=== PATIENT | female | born 1975 | race African-American/Black ===

== ENCOUNTER 2019-05-22 08:41 | Inpatient (IN) ==
[2019-05-22] MEDS ORDERED: VANCOMYCIN INJ 1,500 MG in SODIUM CHLORIDE 0.9% 500 ML IV STA (09:15)
[2019-05-22 10:04] LABS: Albumin 2.7 G/DL (3.4-5.0); Bilirubin,Total 0.6 MG/DL (0.2-1.0); Calcium 9.3 MG/DL (8.5-10.1); Osmolality,Calculated 275.1 MOS/KG (273-304); Total Protein 8.6 G/DL (6.4-8.3)
[2019-05-22 10:07] LABS: Basophils % 0.3 % (0.0-0.8); Eosinophils # 0.1 10*3/uL (0.0-0.87); Eosinophils % 0.9 % (0.00-10.9); Immature Granulocytes % 0.6 %; Immature Granulocytes Absolute 0.06 #; Lymphocytes # 1.8 10*3/uL (1.4-4.0); Lymphocytes % 16.7 % (21.3-54.2); Mean Corpuscular Volume 77.6 FL (87-102); Mean Platelet Volume 11.1 FL (9.6-12.0); Monocytes % 6.7 % (1.7-12.7); Neutrophils % 74.8 % (38.7-73.9); Platelet Count 190 T/CUMM (130-400); Red Blood Count 5.67 MC/CUMM (3.8-5.5); Red Cell Distribution Width 15.6 % (9.3-17.3); White Blood Count 10.6 T/CUMM (4-12)
[2019-05-22 10:10] LABS: Hemoglobin 13.2 GM/DL (12.0-16.0)
[2019-05-22] MEDS ORDERED: PROMETHAZINE 25 MG TABLET PO PRN (11:25)
[2019-05-22] MEDS ORDERED: DEXTROSE 50% 25 GM/50 ML VIAL IV PRN ×2 (11:25→11:27)
[2019-05-22] MEDS ORDERED: GLUCAGON 1 MG VIAL IM PRN ×2 (11:25→11:27)
[2019-05-22] MEDS ORDERED: diphenhydrAMINE CAP 25 MG CAPSULE PO PRN (11:25)
[2019-05-22] MEDS ORDERED: ACETAMINOPHEN 325 MG TABLET PO PRN (11:25)
[2019-05-22] MEDS ORDERED: SODIUM CHLORIDE 0.9% 1,000 ML IV SCH (11:30)
[2019-05-22] MEDS: ENOXAPARIN 40 MG/0.4 ML SYRINGE SUBCUT SCH (15:23)
[2019-05-22] MEDS: INSULIN LISPRO 100 UNIT/ML SUBCUT SCH ×2 (15:23→17:32)
[2019-05-22] MEDS: LISINOPRIL/HCTZ 20-12.5 MG TABLET PO SCH (15:34)
[2019-05-22] MEDS: CEFTAROLINE 600 MG in SODIUM CHLORIDE 0.9% 100 ML IV SCH (17:31)
[2019-05-22] MEDS: SILVER SULFADIAZINE 1% CREAM 25 GM TUBE TOP SCH (17:31)
[2019-05-22] MEDS: sitaGLIPtin 25 MG TABLET PO SCH (21:01)
[2019-05-22] MEDS: INSULIN GLARGINE 100 UNIT/ML SUBCUT SCH (21:01)
[2019-05-23] MEDS: CEFTAROLINE 600 MG in SODIUM CHLORIDE 0.9% 100 ML IV SCH ×3 (00:31→20:16)
[2019-05-23] MEDS: INSULIN LISPRO 100 UNIT/ML SUBCUT SCH ×5 (00:35→21:19)
[2019-05-23 06:17] LABS: Basophils % 0.2 % (0.0-0.8); Eosinophils # 0.1 10*3/uL (0.0-0.87); Eosinophils % 0.8 % (0.00-10.9); Hematocrit 44.6 VOL% (35.7-47.0); Hemoglobin 13.6 GM/DL (12.0-16.0); Immature Granulocytes % 0.8 %; Lymphocytes # 2.5 10*3/uL (1.4-4.0); Lymphocytes % 19.5 % (21.3-54.2); Mean Corpuscular HGB Conc 30.5 GM/DL (32-36); Mean Corpuscular Volume 78.1 FL (87-102); Mean Platelet Volume 11.5 FL (9.6-12.0); Monocytes % 10.1 % (1.7-12.7); Neutrophils % 68.6 % (38.7-73.9); Platelet Count 205 T/CUMM (130-400); Red Blood Count 5.71 MC/CUMM (3.8-5.5); Red Cell Distribution Width 15.9 % (9.3-17.3); White Blood Count 12.6 T/CUMM (4-12)
[2019-05-23 06:26] LABS: Albumin 2.6 G/DL (3.4-5.0); Bilirubin,Total 0.6 MG/DL (0.2-1.0); Calcium 9.3 MG/DL (8.5-10.1); Osmolality,Calculated 274.7 MOS/KG (273-304); Risk Ratio 3.89; Total Protein 8.3 G/DL (6.4-8.3)
[2019-05-23] MEDS: ENOXAPARIN 40 MG/0.4 ML SYRINGE SUBCUT SCH (08:59)
[2019-05-23] MEDS: LISINOPRIL/HCTZ 20-12.5 MG TABLET PO SCH (09:00)
[2019-05-23] MEDS: PANTOPRAZOLE 40 MG TABLET PO SCH (09:00)
[2019-05-23] MEDS: SILVER SULFADIAZINE 1% CREAM 25 GM TUBE TOP SCH (09:00)
[2019-05-23] MEDS ORDERED: POTASSIUM CHLORIDE 20 MEQ TABLET PO ONE (09:00)
[2019-05-23 11:28] LABS: Apearance,Urine CLEAR (Clear); Bilirubin,Urine Negative (Negative); Blood, Urine Small mg/dL (Negative); Glucose,Urine (UA) Negative (Negative); Ketones,Urine 20 mg/dL (Negative); Mucus,Urine Moderate /LPF (Occasional); Nitrite,Urine Negative (Negative); Protein,Urine Negative; RBC,Urine 1 /HPF (0-4); Squamous Epithelial Cell,Urine Occasional /HPF (0-10); Urine Color Yellow (Yellow); Urine Specific Gravity 1.016 (1.001-1.035); Urine Urobilinogen < 2.0 EU/DL (0.2-1.0); WBC,Urine 2 /HPF (0-6)
[2019-05-23] MEDS: POTASSIUM CHLORIDE 20 MEQ TABLET PO SCH ×2 (12:18→15:30)
[2019-05-23 12:20] LABS: Total Protein (Chem) 8.2 G/DL (6.4-8.3)
[2019-05-23] MEDS: sitaGLIPtin 25 MG TABLET PO SCH (20:15)
[2019-05-23] MEDS: INSULIN GLARGINE 100 UNIT/ML SUBCUT SCH (21:19)
[2019-05-24 05:28] LABS: Basophils % 0.4 % (0.0-0.8); Eosinophils # 0.1 10*3/uL (0.0-0.87); Eosinophils % 1.1 % (0.00-10.9); Hematocrit 40.5 VOL% (35.7-47.0); Hemoglobin 12.4 GM/DL (12.0-16.0); Immature Granulocytes % 1.1 %; Immature Granulocytes Absolute 0.12 #; Lymphocytes # 1.9 10*3/uL (1.4-4.0); Lymphocytes % 17.1 % (21.3-54.2); Mean Corpuscular HGB Conc 30.6 GM/DL (32-36); Mean Corpuscular Volume 76.6 FL (87-102); Mean Platelet Volume 11.5 FL (9.6-12.0); Monocytes % 9.4 % (1.7-12.7); Neutrophils % 70.9 % (38.7-73.9); Platelet Count 210 T/CUMM (130-400); Red Blood Count 5.29 MC/CUMM (3.8-5.5); Red Cell Distribution Width 15.1 % (9.3-17.3); White Blood Count 10.8 T/CUMM (4-12)
[2019-05-24 05:56] LABS: Calcium 8.5 MG/DL (8.5-10.1); Osmolality,Calculated 273.8 MOS/KG (273-304)
[2019-05-24 06:57] LABS: Albumin (SPE) 3.8 G/DL (3.2-5.3); Albumin (SPE) Rel % 46.1 %; Alpha 1 (SPE) 0.4 G/DL (0.1-0.4); Alpha 1 (SPE) Rel % 4.9 %; Alpha 2 (SPE) 1.2 G/DL (0.4-1.0); Beta (SPE) 1.1 G/DL (0.5-1.1)
[2019-05-24 07:31] LABS: Alpha 2 (SPE) Rel % 14.7 %; Beta (SPE) Rel % 13.2 %; Gamma (SPE) 1.7 G/DL (0.7-1.7); Gamma (SPE) Rel % 21.1 %
[2019-05-24] MEDS: CEFTAROLINE 600 MG in SODIUM CHLORIDE 0.9% 100 ML IV SCH ×2 (08:39→20:21)
[2019-05-24] MEDS: INSULIN LISPRO 100 UNIT/ML SUBCUT SCH ×4 (08:40→21:31)
[2019-05-24] MEDS: ENOXAPARIN 40 MG/0.4 ML SYRINGE SUBCUT SCH (08:40)
[2019-05-24] MEDS: SILVER SULFADIAZINE 1% CREAM 25 GM TUBE TOP SCH (08:41)
[2019-05-24] MEDS: PANTOPRAZOLE 40 MG TABLET PO SCH (08:41)
[2019-05-24] MEDS: LISINOPRIL/HCTZ 20-12.5 MG TABLET PO SCH (08:41)
[2019-05-24] MEDS ORDERED: POTASSIUM CHLORIDE 20 MEQ TABLET PO ONE (09:00)
[2019-05-24] MEDS: POTASSIUM CHLORIDE 20 MEQ TABLET PO SCH ×3 (12:18→20:20)
[2019-05-24] MEDS: sitaGLIPtin 25 MG TABLET PO SCH (20:21)
[2019-05-24] MEDS: INSULIN GLARGINE 100 UNIT/ML SUBCUT SCH (21:32)
[2019-05-25 06:20] LABS: Osmolality,Calculated 276.7 MOS/KG (273-304)
[2019-05-25] MEDS: PANTOPRAZOLE 40 MG TABLET PO SCH (08:32)
[2019-05-25] MEDS: INSULIN LISPRO 100 UNIT/ML SUBCUT SCH ×2 (08:32→11:32)
[2019-05-25] MEDS: LISINOPRIL/HCTZ 20-12.5 MG TABLET PO SCH (08:32)
[2019-05-25] MEDS: CEFTAROLINE 600 MG in SODIUM CHLORIDE 0.9% 100 ML IV SCH (08:33)
[2019-05-25] MEDS: ENOXAPARIN 40 MG/0.4 ML SYRINGE SUBCUT SCH (08:33)
[2019-05-25] MEDS: SILVER SULFADIAZINE 1% CREAM 25 GM TUBE TOP SCH (08:33)
[2019-05-25] MEDS ORDERED: SKIN HEALING OINT (AQUAPHOR) 50 GM TUBE TOP SCH (10:30)
[2019-05-25 11:50] VITALS: BP 109/70
== END 2019-05-25 12:44 | disposition home health service (06) | DRG 420 ==
LOC: N.ED 08:41 → SUATTDRO 11:25 → N.EDINP 11:25 → N.2E 12:41
PROVIDERS: ADMIT Family Medicine; ATTEND Internal Medicine Cardiovascular Disease

== ENCOUNTER 2022-04-01 01:13 | Inpatient (IN) ==
[2022-04-01] MEDS ORDERED: ALBUTEROL/IPRATROPIUM 3 ML NEB RESP TX STA (01:37)
[2022-04-01] MEDS ORDERED: methylPREDNISolone SOD SUC 125 MG/2 ML VIAL IV STA (01:37)
[2022-04-01 02:12] LABS: ABG Base Excess 6.8 MMOL/L (-2.5-2.5); ABG HCO3 30.4 MMOL/L (20-26); ABG PCO2 59.5 MM HG (35-48); ABG PH 7.374 (7.35-7.45); ABG PO2 68.8 MM HG (80-95); ABG TCO2 29.3 MMOL/L (23-27)
[2022-04-01 02:15] LABS: Albumin 3.3 G/DL (3.4-5.0); Bilirubin,Total 1.1 MG/DL (0.20-1.00); Calcium 8.9 MG/DL (8.5-10.1); Osmolality,Calculated 266.2 MOS/KG (273-304); Potassium 4.2 MMOL/L (3.5-5.1); Total Protein 7.8 G/DL (6.4-8.2)
[2022-04-01 02:26] LABS: Basophils % 0.2 % (0.0-0.8); Eosinophils % 0.2 % (0.00-10.9); Hematocrit 53.2 VOL% (35.7-47.0); Hemoglobin 16.7 GM/DL (12.0-16.0); Immature Granulocytes % 0.4 %; Immature Granulocytes Absolute 0.04 #; Lymphocytes # 1.6 10*3/uL (1.4-4.0); Lymphocytes % 17.2 % (21.3-54.2); Mean Corpuscular HGB Conc 31.4 GM/DL (32-36); Mean Corpuscular Volume 84.3 FL (87-102); Mean Platelet Volume 9.9 FL (9.6-12.0); Monocytes # 0.7 10*3/uL (0.11-0.8); Monocytes % 8.1 % (1.7-12.7); NRBC # 0.07 10*3/uL; Neutrophils % 73.9 % (38.7-73.9); Platelet Count 175 T/CUMM (130-400); Red Blood Count 6.31 MC/CUMM (3.8-5.5); Red Cell Distribution Width 18.7 % (9.3-17.3)
[2022-04-01 02:31] LABS: INR 1.3; PT Patient Result 14.2 SECS (10.5-12.0)
[2022-04-01] MEDS ORDERED: LEVOFLOXACIN INJ 750 MG/150 ML PREMIX IV STA (02:52)
[2022-04-01] MEDS ORDERED: FUROSEMIDE 40 MG/4 ML VIAL IV STA (03:36)
[2022-04-01] MEDS ORDERED: GLUCAGON 1 MG VIAL IM PRN (04:15)
[2022-04-01] MEDS ORDERED: ACETAMINOPHEN 325 MG TABLET PO PRN (04:16)
[2022-04-01] MEDS ORDERED: guaiFENesin/DM ER 600-30 MG TABLET PO PRN (04:16)
[2022-04-01] MEDS ORDERED: ONDANSETRON 4 MG/2 ML VIAL IV PRN (04:16)
[2022-04-01] MEDS ORDERED: CALCIUM CARBONATE CHEW 500 MG TABLET PO PRN (04:16)
[2022-04-01] MEDS ORDERED: SODIUM CHLORIDE 0.9% 1,000 ML IV SCH (04:30)
[2022-04-01] MEDS ORDERED: VANCOMYCIN INJ 2,500 MG in SODIUM CHLORIDE 0.9% 500 ML IV STA (04:33)
[2022-04-01] MEDS ORDERED: DEXTROSE 10% 250 ML BAG IV PRN (04:36)
[2022-04-01 06:28] LABS: Risk Ratio 2.69; Thyroid Stimulating Hormone 2.18 uIU/ml (0.358-3.74); VLDL Cholesterol 14.6 MG/DL
[2022-04-01] MEDS: ENOXAPARIN 40 MG/0.4 ML SYRINGE SUBCUT SCH (06:28)
[2022-04-01] MEDS: ALBUTEROL/IPRATROPIUM 3 ML NEB RESP TX SCH ×3 (07:50→19:45)
[2022-04-01] MEDS: DOCUSATE SODIUM 100 MG CAPSULE PO SCH ×2 (10:16→21:34)
[2022-04-01] MEDS: METOPROLOL TARTRATE 25 MG TABLET PO SCH (10:16)
[2022-04-01] MEDS: sitaGLIPtin 25 MG TABLET PO SCH (10:16)
[2022-04-01] MEDS: ATORVASTATIN 20 MG TABLET PO SCH (10:16)
[2022-04-01] MEDS: PANTOPRAZOLE 40 MG TABLET PO SCH (10:16)
[2022-04-01] MEDS: LISINOPRIL/HCTZ 20-12.5 MG TABLET PO SCH (10:16)
[2022-04-01] MEDS: ASPIRIN EC 81 MG TABLET PO SCH (10:17)
[2022-04-01] MEDS: INSULIN REGULAR 100 UNIT/ML SUBCUT SCH ×3 (10:25→17:17)
[2022-04-01] MEDS: FUROSEMIDE 40 MG/4 ML VIAL IV SCH ×2 (11:45→15:56)
[2022-04-01] MEDS: methylPREDNISolone SOD SUC 125 MG/2 ML VIAL IV SCH ×2 (11:46→17:17)
[2022-04-01 12:13] LABS: Bacteria,Urine Occasional /HPF (Few); Mucus,Urine Occasional /LPF (Occasional); RBC,Urine 12 /HPF (0-4); Squamous Epithelial Cell,Urine Occasional /HPF (0-10)
[2022-04-01 12:15] LABS: Urine Appearance Clear (Clear); Urine Specific Gravity 1.015 (1.001-1.035); Urine pH 5.5 (4.5-8.0)
[2022-04-01 12:16] LABS: Bilirubin,Urine Small mg/dL (Negative); Blood, Urine Moderate mg/dL (Negative); Glucose,Urine (UA) Negative (Negative); Ketones,Urine Negative (Negative); Nitrite,Urine Negative (Negative); Protein,Urine 30 mg/dL (Negative); Urine Color Dark yellow (Yellow); Urine Urobilinogen > 8.0 eU/dL (<2.0)
[2022-04-01 12:21] LABS: Barbiturates Screen,Urine Negative (Negative); Benzodiazepines Screen,Urine Negative (Negative); Cannabinoid Screen,Urine Negative (Negative); Opiate Screen,Urine Positive (Negative); Phencyclidine Screen,Urine Negative (Negative)
[2022-04-01] MEDS: INSULIN GLARGINE 100 UNIT/ML SUBCUT SCH (21:34)
[2022-04-02] MEDS: ALBUTEROL/IPRATROPIUM 3 ML NEB RESP TX SCH ×4 (00:10→19:18)
[2022-04-02 05:07] LABS: Basophils % 0.1 % (0.0-0.8); Hematocrit 52.1 VOL% (35.7-47.0); Hemoglobin 16.2 GM/DL (12.0-16.0); Immature Granulocytes % 0.6 %; Immature Granulocytes Absolute 0.07 #; Lymphocytes # 0.7 10*3/uL (1.4-4.0); Mean Corpuscular HGB Conc 31.1 GM/DL (32-36); Mean Corpuscular Volume 84.4 FL (87-102); Mean Platelet Volume 10.5 FL (9.6-12.0); Monocytes # 0.6 10*3/uL (0.11-0.8); Monocytes % 4.9 % (1.7-12.7); NRBC # 0.05 10*3/uL; Neutrophils % 88.4 % (38.7-73.9); Platelet Count 171 T/CUMM (130-400); Red Blood Count 6.17 MC/CUMM (3.8-5.5); Red Cell Distribution Width 18.6 % (9.3-17.3)
[2022-04-02 05:21] LABS: Calcium 8.4 MG/DL (8.5-10.1); Osmolality,Calculated 271.1 MOS/KG (273-304); Potassium 4.3 MMOL/L (3.5-5.1)
[2022-04-02] MEDS: INSULIN REGULAR 100 UNIT/ML SUBCUT SCH ×5 (05:48→21:28)
[2022-04-02] MEDS: methylPREDNISolone SOD SUC 125 MG/2 ML VIAL IV SCH ×3 (05:49→17:42)
[2022-04-02] MEDS: ENOXAPARIN 40 MG/0.4 ML SYRINGE SUBCUT SCH (05:59)
[2022-04-02] MEDS ORDERED: MAGNESIUM SULF RIDER 2 GM/50 ML PREMIX IV ONE (08:29)
[2022-04-02] MEDS ORDERED: LEVOFLOXACIN INJ 750 MG/150 ML PREMIX IV SCH (09:00)
[2022-04-02] MEDS: FUROSEMIDE 40 MG/4 ML VIAL IV SCH ×2 (09:32→17:41)
[2022-04-02] MEDS: DOCUSATE SODIUM 100 MG CAPSULE PO SCH ×2 (09:33→21:28)
[2022-04-02] MEDS: METOPROLOL TARTRATE 25 MG TABLET PO SCH (09:33)
[2022-04-02] MEDS: LISINOPRIL/HCTZ 20-12.5 MG TABLET PO SCH (09:33)
[2022-04-02] MEDS: sitaGLIPtin 25 MG TABLET PO SCH (09:33)
[2022-04-02] MEDS: ASPIRIN EC 81 MG TABLET PO SCH (09:34)
[2022-04-02] MEDS: ATORVASTATIN 20 MG TABLET PO SCH (09:34)
[2022-04-02] MEDS: PANTOPRAZOLE 40 MG TABLET PO SCH (09:34)
[2022-04-02] MEDS: amLODIPine 5 MG TABLET PO SCH (11:54)
[2022-04-02] MEDS: INSULIN GLARGINE 100 UNIT/ML SUBCUT SCH (21:28)
[2022-04-03] MEDS: ALBUTEROL/IPRATROPIUM 3 ML NEB RESP TX SCH ×4 (00:38→19:18)
[2022-04-03] MEDS: methylPREDNISolone SOD SUC 125 MG/2 ML VIAL IV SCH ×3 (02:03→17:59)
[2022-04-03] MEDS: ENOXAPARIN 40 MG/0.4 ML SYRINGE SUBCUT SCH (04:49)
[2022-04-03 05:54] LABS: Basophils % 0.1 % (0.0-0.8); Hematocrit 49.8 VOL% (35.7-47.0); Hemoglobin 15.6 GM/DL (12.0-16.0); Immature Granulocytes % 0.5 %; Immature Granulocytes Absolute 0.07 #; Lymphocytes # 0.6 10*3/uL (1.4-4.0); Lymphocytes % 4.1 % (21.3-54.2); Mean Corpuscular HGB Conc 31.3 GM/DL (32-36); Mean Corpuscular Volume 85.9 FL (87-102); Mean Platelet Volume 10.4 FL (9.6-12.0); Monocytes # 0.3 10*3/uL (0.11-0.8); Monocytes % 2.3 % (1.7-12.7); NRBC # 0.03 10*3/uL; Platelet Count 157 T/CUMM (130-400); Red Cell Distribution Width 17.9 % (9.3-17.3); White Blood Count 13.6 T/CUMM (4-12)
[2022-04-03 06:08] LABS: Calcium 9.3 MG/DL (8.5-10.1); Osmolality,Calculated 271.1 MOS/KG (273-304); Potassium 4.1 MMOL/L (3.5-5.1)
[2022-04-03] MEDS: sitaGLIPtin 25 MG TABLET PO SCH (08:49)
[2022-04-03] MEDS: DOCUSATE SODIUM 100 MG CAPSULE PO SCH ×2 (08:49→22:30)
[2022-04-03] MEDS: METOPROLOL SUCCINATE XL 25 MG TABLET PO SCH (08:49)
[2022-04-03] MEDS: LISINOPRIL/HCTZ 10-12.5 MG TABLET PO SCH (08:49)
[2022-04-03] MEDS: ATORVASTATIN 20 MG TABLET PO SCH (08:49)
[2022-04-03] MEDS: amLODIPine 5 MG TABLET PO SCH (08:50)
[2022-04-03] MEDS: PANTOPRAZOLE 40 MG TABLET PO SCH (08:50)
[2022-04-03] MEDS: ASPIRIN EC 81 MG TABLET PO SCH (08:50)
[2022-04-03] MEDS: FUROSEMIDE 40 MG/4 ML VIAL IV SCH ×2 (08:50→16:36)
[2022-04-03] MEDS: INSULIN REGULAR 100 UNIT/ML SUBCUT SCH ×4 (08:51→22:31)
[2022-04-03] MEDS ORDERED: LEVOFLOXACIN 750 MG TABLET PO SCH (09:00)
[2022-04-03] MEDS: PIPERACILLIN/TAZOBACTAM 3,375 MG in SODIUM CHLORIDE 0.9% 100 ML IV SCH ×2 (15:00→22:30)
[2022-04-03] MEDS: INSULIN GLARGINE 100 UNIT/ML SUBCUT SCH (22:31)
[2022-04-04] MEDS: ALBUTEROL/IPRATROPIUM 3 ML NEB RESP TX SCH ×4 (00:07→19:03)
[2022-04-04] MEDS: methylPREDNISolone SOD SUC 125 MG/2 ML VIAL IV SCH ×3 (02:26→17:53)
[2022-04-04 05:23] LABS: Basophils % 0.1 % (0.0-0.8); Hematocrit 51.5 VOL% (35.7-47.0); Hemoglobin 15.9 GM/DL (12.0-16.0); Immature Granulocytes % 0.3 %; Immature Granulocytes Absolute 0.04 #; Lymphocytes # 0.6 10*3/uL (1.4-4.0); Lymphocytes % 4.8 % (21.3-54.2); Mean Corpuscular HGB Conc 30.9 GM/DL (32-36); Mean Corpuscular Volume 84.3 FL (87-102); Mean Platelet Volume 10.7 FL (9.6-12.0); Monocytes # 0.5 10*3/uL (0.11-0.8); Monocytes % 3.8 % (1.7-12.7); Platelet Count 162 T/CUMM (130-400); Red Blood Count 6.11 MC/CUMM (3.8-5.5); Red Cell Distribution Width 18.3 % (9.3-17.3); White Blood Count 11.8 T/CUMM (4-12)
[2022-04-04 05:38] LABS: Osmolality,Calculated 274.8 MOS/KG (273-304); Potassium 3.9 MMOL/L (3.5-5.1)
[2022-04-04 05:44] LABS: Lymphocytes 2 % (20-55); Platelet Estimate Adequate; Total Cells Counted 100
[2022-04-04] MEDS: ENOXAPARIN 40 MG/0.4 ML SYRINGE SUBCUT SCH (06:24)
[2022-04-04] MEDS: PIPERACILLIN/TAZOBACTAM 3,375 MG in SODIUM CHLORIDE 0.9% 100 ML IV SCH ×3 (06:24→22:31)
[2022-04-04] MEDS: LISINOPRIL/HCTZ 10-12.5 MG TABLET PO SCH (09:10)
[2022-04-04] MEDS: sitaGLIPtin 25 MG TABLET PO SCH (09:10)
[2022-04-04] MEDS: ASPIRIN EC 81 MG TABLET PO SCH (09:11)
[2022-04-04] MEDS: ATORVASTATIN 20 MG TABLET PO SCH (09:11)
[2022-04-04] MEDS: DOCUSATE SODIUM 100 MG CAPSULE PO SCH ×2 (09:11→21:29)
[2022-04-04] MEDS: PANTOPRAZOLE 40 MG TABLET PO SCH (09:11)
[2022-04-04] MEDS: amLODIPine 5 MG TABLET PO SCH (09:11)
[2022-04-04] MEDS: METOPROLOL SUCCINATE XL 25 MG TABLET PO SCH (09:11)
[2022-04-04] MEDS: FUROSEMIDE 40 MG/4 ML VIAL IV SCH ×2 (09:12→15:31)
[2022-04-04] MEDS: INSULIN REGULAR 100 UNIT/ML SUBCUT SCH ×4 (09:13→21:29)
[2022-04-04] MEDS: INSULIN GLARGINE 100 UNIT/ML SUBCUT SCH (22:30)
[2022-04-05] MEDS: ALBUTEROL/IPRATROPIUM 3 ML NEB RESP TX SCH ×5 (00:07→19:51)
[2022-04-05] MEDS: methylPREDNISolone SOD SUC 125 MG/2 ML VIAL IV SCH ×3 (03:01→17:43)
[2022-04-05 04:46] LABS: Basophils % 0.1 % (0.0-0.8); Hematocrit 50.6 VOL% (35.7-47.0); Hemoglobin 15.6 GM/DL (12.0-16.0); Immature Granulocytes % 0.5 %; Immature Granulocytes Absolute 0.06 #; Lymphocytes # 0.7 10*3/uL (1.4-4.0); Lymphocytes % 6.3 % (21.3-54.2); Mean Corpuscular HGB Conc 30.8 GM/DL (32-36); Mean Corpuscular Volume 85.8 FL (87-102); Mean Platelet Volume 10.2 FL (9.6-12.0); Monocytes # 0.5 10*3/uL (0.11-0.8); Monocytes % 4.4 % (1.7-12.7); Neutrophils % 88.7 % (38.7-73.9); Platelet Count 141 T/CUMM (130-400); White Blood Count 11.4 T/CUMM (4-12)
[2022-04-05 05:17] LABS: Calcium 8.2 MG/DL (8.5-10.1); Potassium 3.6 MMOL/L (3.5-5.1)
[2022-04-05] MEDS: PIPERACILLIN/TAZOBACTAM 3,375 MG in SODIUM CHLORIDE 0.9% 100 ML IV SCH ×3 (06:44→22:02)
[2022-04-05] MEDS ORDERED: POTASSIUM CHLORIDE 20 MEQ TABLET PO ONE (08:30)
[2022-04-05] MEDS: INSULIN REGULAR 100 UNIT/ML SUBCUT SCH ×4 (08:40→22:02)
[2022-04-05] MEDS: DOCUSATE SODIUM 100 MG CAPSULE PO SCH ×2 (09:11→22:01)
[2022-04-05] MEDS: ATORVASTATIN 20 MG TABLET PO SCH (09:11)
[2022-04-05] MEDS: PANTOPRAZOLE 40 MG TABLET PO SCH (09:11)
[2022-04-05] MEDS: METOPROLOL SUCCINATE XL 25 MG TABLET PO SCH (09:11)
[2022-04-05] MEDS: amLODIPine 5 MG TABLET PO SCH (09:11)
[2022-04-05] MEDS: lisinopriL 10 MG TABLET PO SCH (09:11)
[2022-04-05] MEDS: ASPIRIN EC 81 MG TABLET PO SCH (09:11)
[2022-04-05] MEDS: sitaGLIPtin 25 MG TABLET PO SCH (09:11)
[2022-04-05] MEDS: ENOXAPARIN 40 MG/0.4 ML SYRINGE SUBCUT SCH (09:12)
[2022-04-05] MEDS: FUROSEMIDE 40 MG/4 ML VIAL IV SCH (10:35)
[2022-04-05] MEDS: SPIRONOLACTONE 25 MG TABLET PO SCH (11:48)
[2022-04-05] MEDS: INSULIN GLARGINE 100 UNIT/ML SUBCUT SCH (22:01)
[2022-04-06] MEDS: ALBUTEROL/IPRATROPIUM 3 ML NEB RESP TX SCH ×4 (02:35→19:35)
[2022-04-06] MEDS: methylPREDNISolone SOD SUC 125 MG/2 ML VIAL IV SCH ×2 (02:55→10:49)
[2022-04-06] MEDS: PIPERACILLIN/TAZOBACTAM 3,375 MG in SODIUM CHLORIDE 0.9% 100 ML IV SCH ×3 (05:58→21:28)
[2022-04-06] MEDS ORDERED: FUROSEMIDE 40 MG/4 ML VIAL IV SCH (08:00)
[2022-04-06] MEDS: sitaGLIPtin 25 MG TABLET PO SCH (08:40)
[2022-04-06] MEDS: METOPROLOL SUCCINATE XL 25 MG TABLET PO SCH (08:41)
[2022-04-06] MEDS: amLODIPine 5 MG TABLET PO SCH (08:41)
[2022-04-06] MEDS: ASPIRIN EC 81 MG TABLET PO SCH (08:41)
[2022-04-06] MEDS: ATORVASTATIN 20 MG TABLET PO SCH (08:41)
[2022-04-06] MEDS: ENOXAPARIN 40 MG/0.4 ML SYRINGE SUBCUT SCH (08:41)
[2022-04-06] MEDS: DOCUSATE SODIUM 100 MG CAPSULE PO SCH ×2 (08:41→21:28)
[2022-04-06] MEDS: SPIRONOLACTONE 25 MG TABLET PO SCH (08:41)
[2022-04-06] MEDS: lisinopriL 10 MG TABLET PO SCH (08:41)
[2022-04-06] MEDS: PANTOPRAZOLE 40 MG TABLET PO SCH (08:41)
[2022-04-06] MEDS: INSULIN REGULAR 100 UNIT/ML SUBCUT SCH ×4 (08:42→21:28)
[2022-04-06] MEDS: FUROSEMIDE 40 MG TABLET PO SCH (16:45)
[2022-04-06] MEDS: predniSONE 20 MG TABLET PO SCH (21:28)
[2022-04-06] MEDS: INSULIN GLARGINE 100 UNIT/ML SUBCUT SCH (21:29)
[2022-04-07] MEDS: ALBUTEROL/IPRATROPIUM 3 ML NEB RESP TX SCH ×4 (00:27→20:10)
[2022-04-07 05:21] LABS: Basophils % 0.1 % (0.0-0.8); Immature Granulocytes % 0.4 %; Immature Granulocytes Absolute 0.04 #; Lymphocytes # 0.9 10*3/uL (1.4-4.0); Lymphocytes % 9.2 % (21.3-54.2); Mean Corpuscular HGB Conc 30.9 GM/DL (32-36); Mean Corpuscular Volume 85.3 FL (87-102); Mean Platelet Volume 10.9 FL (9.6-12.0); Monocytes # 0.6 10*3/uL (0.11-0.8); Neutrophils % 84.3 % (38.7-73.9); Platelet Count 154 T/CUMM (130-400); Red Blood Count 6.45 MC/CUMM (3.8-5.5); Red Cell Distribution Width 18.3 % (9.3-17.3); White Blood Count 9.8 T/CUMM (4-12)
[2022-04-07] MEDS: PIPERACILLIN/TAZOBACTAM 3,375 MG in SODIUM CHLORIDE 0.9% 100 ML IV SCH ×2 (05:28→13:40)
[2022-04-07 05:41] LABS: Calcium 8.9 MG/DL (8.5-10.1); Osmolality,Calculated 278.7 MOS/KG (273-304); Potassium 3.8 MMOL/L (3.5-5.1)
[2022-04-07] MEDS: amLODIPine 5 MG TABLET PO SCH (09:10)
[2022-04-07] MEDS: FUROSEMIDE 40 MG TABLET PO SCH ×2 (09:10→15:33)
[2022-04-07] MEDS: ATORVASTATIN 20 MG TABLET PO SCH (09:10)
[2022-04-07] MEDS: PANTOPRAZOLE 40 MG TABLET PO SCH (09:10)
[2022-04-07] MEDS: sitaGLIPtin 25 MG TABLET PO SCH (09:10)
[2022-04-07] MEDS: predniSONE 20 MG TABLET PO SCH ×2 (09:10→22:23)
[2022-04-07] MEDS: lisinopriL 10 MG TABLET PO SCH (09:10)
[2022-04-07] MEDS: DOCUSATE SODIUM 100 MG CAPSULE PO SCH ×2 (09:10→22:23)
[2022-04-07] MEDS: METOPROLOL SUCCINATE XL 25 MG TABLET PO SCH (09:10)
[2022-04-07] MEDS: SPIRONOLACTONE 25 MG TABLET PO SCH (09:10)
[2022-04-07] MEDS: ASPIRIN EC 81 MG TABLET PO SCH (09:10)
[2022-04-07] MEDS: ENOXAPARIN 40 MG/0.4 ML SYRINGE SUBCUT SCH (09:11)
[2022-04-07] MEDS: INSULIN REGULAR 100 UNIT/ML SUBCUT SCH ×4 (09:11→22:24)
[2022-04-07] MEDS: AMOXICILLIN/CLAV 875 MG TABLET PO SCH (22:23)
[2022-04-07] MEDS: INSULIN GLARGINE 100 UNIT/ML SUBCUT SCH (22:24)
[2022-04-08] MEDS: ALBUTEROL/IPRATROPIUM 3 ML NEB RESP TX SCH ×2 (00:35)
[2022-04-08] MEDS: sitaGLIPtin 25 MG TABLET PO SCH (09:19)
[2022-04-08] MEDS: INSULIN REGULAR 100 UNIT/ML SUBCUT SCH ×2 (09:19→12:40)
[2022-04-08] MEDS: AMOXICILLIN/CLAV 875 MG TABLET PO SCH (09:19)
[2022-04-08] MEDS: METOPROLOL SUCCINATE XL 25 MG TABLET PO SCH (09:19)
[2022-04-08] MEDS: ENOXAPARIN 40 MG/0.4 ML SYRINGE SUBCUT SCH (09:19)
[2022-04-08] MEDS: DOCUSATE SODIUM 100 MG CAPSULE PO SCH (09:20)
[2022-04-08] MEDS: ASPIRIN EC 81 MG TABLET PO SCH (09:20)
[2022-04-08] MEDS: ATORVASTATIN 20 MG TABLET PO SCH (09:20)
[2022-04-08] MEDS: predniSONE 20 MG TABLET PO SCH (09:20)
[2022-04-08] MEDS: lisinopriL 10 MG TABLET PO SCH (09:20)
[2022-04-08] MEDS: amLODIPine 5 MG TABLET PO SCH (09:20)
[2022-04-08] MEDS: FUROSEMIDE 40 MG TABLET PO SCH (09:20)
[2022-04-08] MEDS: SPIRONOLACTONE 25 MG TABLET PO SCH (09:21)
[2022-04-08] MEDS: PANTOPRAZOLE 40 MG TABLET PO SCH (09:21)
[2022-04-08 11:37] VITALS: BP 137/81
== END 2022-04-08 13:50 | disposition home or self-care (01) | DRG 133 ==
LOC: EDBD → EDUNIT# → N.ED 01:13 → N.EDINP 04:03 → SUATTDRO 04:03 → N.TELEN 04:26
PROVIDERS: ADMIT Internal Medicine; ATTEND Emergency Medicine

== ENCOUNTER 2022-09-03 09:55 | Inpatient (IN) ==
[2022-09-03] MEDS ORDERED: FUROSEMIDE 40 MG/4 ML VIAL IV STA ×2 (10:10→11:08)
[2022-09-03] MEDS ORDERED: ASPIRIN 325 MG TABLET PO STA (10:10)
[2022-09-03] MEDS ORDERED: ALBUTEROL/IPRATROPIUM 3 ML NEB RESP TX STA (10:10)
[2022-09-03 10:19] LABS: Basophils % 0.4 % (0.0-0.8); Hematocrit 48.8 VOL% (35.7-47.0); Hemoglobin 15.4 GM/DL (12.0-16.0); Immature Granulocytes % 0.1 %; Immature Granulocytes Absolute 0.01 #; Lymphocytes # 1.6 10*3/uL (1.4-4.0); Lymphocytes % 19.3 % (21.3-54.2); Mean Corpuscular HGB Conc 31.6 GM/DL (32-36); Mean Corpuscular Volume 86.8 FL (87-102); Mean Platelet Volume 10.1 FL (9.6-12.0); Monocytes # 0.8 10*3/uL (0.11-0.8); NRBC # 0.02 10*3/uL; Neutrophils % 70.2 % (38.7-73.9); Platelet Count 214 T/CUMM (130-400); Red Blood Count 5.62 MC/CUMM (3.8-5.5); Red Cell Distribution Width 19.3 % (9.3-17.3); White Blood Count 8.4 T/CUMM (4-12)
[2022-09-03 10:36] LABS: INR 1.3; PT Patient Result 14.5 SECS (10.1-12.1)
[2022-09-03 10:37] LABS: Albumin 3.3 G/DL (3.4-5.0); Bilirubin,Total 1.4 MG/DL (0.20-1.00); Calcium 9.2 MG/DL (8.5-10.1); Osmolality,Calculated 271.1 MOS/KG (273-304); Potassium 4.5 MMOL/L (3.5-5.1); Total Protein 7.9 G/DL (6.4-8.2)
[2022-09-03 10:59] LABS: Arterial Base Excess iSTAT 5 MMOL/L (-2.5-2.5); Arterial Bicarbonate iSTAT 30.5 MMOL/L (20-26); Arterial O2 Saturation iSTAT 79 % (95-100); Arterial PCO2 iSTAT 48 MM HG (35-48); Arterial PO2 iSTAT 43 MM HG (80-95); Arterial Total CO2 iSTAT 32 MMO/L (23-27); Arterial pH iSTAT 7.415 (7.35-7.45)
[2022-09-03] MEDS ORDERED: FUROSEMIDE 20 MG/2 ML VIAL IV STA (11:06)
[2022-09-03] MEDS ORDERED: cefTRIAXone 1,000 MG in SODIUM CHLORIDE 0.9% 100 ML IV STA (12:18)
[2022-09-03] MEDS ORDERED: AZITHROMYCIN INJ 500 MG in SODIUM CHLORIDE 0.9% 250 ML IV STA (12:18)
[2022-09-03] MEDS ORDERED: guaiFENesin/DM ER 600-30 MG TABLET PO PRN (12:59)
[2022-09-03] MEDS ORDERED: ZALEPLON 5 MG CAPSULE PO PRN (12:59)
[2022-09-03] MEDS ORDERED: GLUCAGON 1 MG VIAL IM PRN (12:59)
[2022-09-03] MEDS ORDERED: ACETAMINOPHEN 325 MG TABLET PO PRN (12:59)
[2022-09-03] MEDS ORDERED: ONDANSETRON 4 MG/2 ML VIAL IV PRN (12:59)
[2022-09-03] MEDS ORDERED: DEXTROSE 10% 250 ML BAG IV PRN (13:10)
[2022-09-03] MEDS ORDERED: INFLUENZA VIRUS VACCINE 0.5 ML SYRINGE IM ONE (14:34)
[2022-09-03] MEDS: FUROSEMIDE 40 MG/4 ML VIAL IV SCH (15:09)
[2022-09-03] MEDS: NICOTINE 21 MG/24 HR PATCH TRANSDERM SCH (15:10)
[2022-09-03] MEDS: ENOXAPARIN 40 MG/0.4 ML SYRINGE SUBCUT SCH (15:11)
[2022-09-03] MEDS: INSULIN REGULAR 100 UNIT/ML SUBCUT SCH ×2 (15:47→21:15)
[2022-09-03] MEDS: INSULIN GLARGINE 100 UNIT/ML SUBCUT SCH (21:15)
[2022-09-04 05:29] LABS: Basophils # 0.1 10*3/uL (0.0-0.2); Basophils % 0.6 % (0.0-0.8); Eosinophils % 0.2 % (0.00-10.9); Hematocrit 43.6 VOL% (35.7-47.0); Hemoglobin 14.5 GM/DL (12.0-16.0); Immature Granulocytes % 0.2 %; Immature Granulocytes Absolute 0.02 #; Lymphocytes # 1.8 10*3/uL (1.4-4.0); Lymphocytes % 21.7 % (21.3-54.2); Mean Corpuscular HGB Conc 33.3 GM/DL (32-36); Mean Corpuscular Volume 87.7 FL (87-102); Mean Platelet Volume 10.1 FL (9.6-12.0); Monocytes % 11.4 % (1.7-12.7); Neutrophils % 65.9 % (38.7-73.9); Platelet Count 215 T/CUMM (130-400); Red Blood Count 4.97 MC/CUMM (3.8-5.5); Red Cell Distribution Width 18.2 % (9.3-17.3); White Blood Count 8.3 T/CUMM (4-12)
[2022-09-04 06:00] LABS: Anisocytosis 1+; Macrocytosis Slight; Platelet Estimate Normal
[2022-09-04 06:27] LABS: Calcium 8.9 MG/DL (8.5-10.1); Osmolality,Calculated 272.8 MOS/KG (273-304); Potassium 3.8 MMOL/L (3.5-5.1); Thyroid Stimulating Hormone 0.672 uIU/ml (0.358-3.74)
[2022-09-04] MEDS: INSULIN REGULAR 100 UNIT/ML SUBCUT SCH ×4 (07:44→21:27)
[2022-09-04] MEDS: lisinopriL 20 MG TABLET PO SCH (08:42)
[2022-09-04] MEDS: hydroCHLOROthiazide 12.5 MG CAPSULE PO SCH (08:42)
[2022-09-04] MEDS: cefTRIAXone 2,000 MG in SODIUM CHLORIDE 0.9% 100 ML IV SCH (08:43)
[2022-09-04] MEDS: FUROSEMIDE 40 MG/4 ML VIAL IV SCH ×2 (08:43→16:45)
[2022-09-04] MEDS: DOCUSATE SODIUM 100 MG CAPSULE PO PRN (08:44)
[2022-09-04] MEDS: ATORVASTATIN 20 MG TABLET PO SCH (08:45)
[2022-09-04] MEDS: NICOTINE 21 MG/24 HR PATCH TRANSDERM SCH (08:50)
[2022-09-04] MEDS ORDERED: MAGNESIUM SULF RIDER 2 GM/50 ML PREMIX IV ONE (09:02)
[2022-09-04] MEDS: AZITHROMYCIN INJ 500 MG in SODIUM CHLORIDE 0.9% 250 ML IV SCH (09:30)
[2022-09-04] MEDS: ENOXAPARIN 40 MG/0.4 ML SYRINGE SUBCUT SCH (14:48)
[2022-09-04] MEDS: INSULIN GLARGINE 100 UNIT/ML SUBCUT SCH (20:57)
[2022-09-05 06:16] LABS: Basophils % 0.4 % (0.0-0.8); Eosinophils % 0.4 % (0.00-10.9); Hematocrit 42.8 VOL% (35.7-47.0); Hemoglobin 13.6 GM/DL (12.0-16.0); Immature Granulocytes % 0.3 %; Immature Granulocytes Absolute 0.02 #; Lymphocytes # 1.5 10*3/uL (1.4-4.0); Lymphocytes % 20.6 % (21.3-54.2); Mean Corpuscular HGB Conc 31.8 GM/DL (32-36); Mean Corpuscular Volume 89.4 FL (87-102); Mean Platelet Volume 10.7 FL (9.6-12.0); Monocytes # 0.8 10*3/uL (0.11-0.8); Monocytes % 10.3 % (1.7-12.7); Platelet Count 194 T/CUMM (130-400); Red Blood Count 4.79 MC/CUMM (3.8-5.5); Red Cell Distribution Width 17.8 % (9.3-17.3); White Blood Count 7.4 T/CUMM (4-12)
[2022-09-05 06:50] LABS: Calcium 8.5 MG/DL (8.5-10.1); Osmolality,Calculated 271.8 MOS/KG (273-304); Potassium 3.4 MMOL/L (3.5-5.1)
[2022-09-05] MEDS: INSULIN REGULAR 100 UNIT/ML SUBCUT SCH ×4 (07:52→20:57)
[2022-09-05] MEDS ORDERED: POTASSIUM CHLORIDE 20 MEQ TABLET PO ONE ×2 (08:16→08:39)
[2022-09-05] MEDS: NICOTINE 21 MG/24 HR PATCH TRANSDERM SCH (09:50)
[2022-09-05] MEDS: ATORVASTATIN 20 MG TABLET PO SCH (09:50)
[2022-09-05] MEDS: lisinopriL 20 MG TABLET PO SCH (09:50)
[2022-09-05] MEDS: FUROSEMIDE 40 MG/4 ML VIAL IV SCH ×2 (09:50→18:06)
[2022-09-05] MEDS: hydroCHLOROthiazide 12.5 MG CAPSULE PO SCH (09:50)
[2022-09-05] MEDS: cefTRIAXone 2,000 MG in SODIUM CHLORIDE 0.9% 100 ML IV SCH (09:51)
[2022-09-05] MEDS: ASPIRIN EC 81 MG TABLET PO SCH (09:58)
[2022-09-05] MEDS: AZITHROMYCIN INJ 500 MG in SODIUM CHLORIDE 0.9% 250 ML IV SCH (11:17)
[2022-09-05] MEDS ORDERED: AZITHROMYCIN INJ 500 MG in SODIUM CHLORIDE 0.9% 250 ML IV SCH (12:00)
[2022-09-05] MEDS: ENOXAPARIN 40 MG/0.4 ML SYRINGE SUBCUT SCH (13:52)
[2022-09-05] MEDS: INSULIN GLARGINE 100 UNIT/ML SUBCUT SCH (20:59)
[2022-09-06 06:03] LABS: Basophils % 0.5 % (0.0-0.8); Eosinophils # 0.1 10*3/uL (0.0-0.87); Eosinophils % 1.1 % (0.00-10.9); Hematocrit 45.2 VOL% (35.7-47.0); Immature Granulocytes % 0.3 %; Immature Granulocytes Absolute 0.02 #; Lymphocytes # 1.4 10*3/uL (1.4-4.0); Lymphocytes % 22.6 % (21.3-54.2); Mean Corpuscular Volume 89.7 FL (87-102); Mean Platelet Volume 10.2 FL (9.6-12.0); Monocytes # 0.6 10*3/uL (0.11-0.8); Neutrophils % 66.5 % (38.7-73.9); Platelet Count 206 T/CUMM (130-400); Red Blood Count 5.04 MC/CUMM (3.8-5.5); White Blood Count 6.2 T/CUMM (4-12)
[2022-09-06 06:13] LABS: Calcium 8.8 MG/DL (8.5-10.1); Osmolality,Calculated 273.8 MOS/KG (273-304); Potassium 3.6 MMOL/L (3.5-5.1)
[2022-09-06] MEDS ORDERED: MAGNESIUM SULF RIDER 2 GM/50 ML PREMIX IV ONE (09:00)
[2022-09-06] MEDS: cefTRIAXone 2,000 MG in SODIUM CHLORIDE 0.9% 100 ML IV SCH (10:13)
[2022-09-06] MEDS: NICOTINE 21 MG/24 HR PATCH TRANSDERM SCH (10:14)
[2022-09-06] MEDS: FUROSEMIDE 40 MG/4 ML VIAL IV SCH ×2 (10:14→16:45)
[2022-09-06] MEDS: AZITHROMYCIN 250 MG TABLET PO SCH (10:15)
[2022-09-06] MEDS: hydroCHLOROthiazide 12.5 MG CAPSULE PO SCH (10:15)
[2022-09-06] MEDS: lisinopriL 20 MG TABLET PO SCH (10:15)
[2022-09-06] MEDS: ASPIRIN EC 81 MG TABLET PO SCH (10:15)
[2022-09-06] MEDS: ATORVASTATIN 20 MG TABLET PO SCH (10:15)
[2022-09-06] MEDS: DOCUSATE SODIUM 100 MG CAPSULE PO PRN (10:15)
[2022-09-06] MEDS: INSULIN REGULAR 100 UNIT/ML SUBCUT SCH ×4 (10:25→20:37)
[2022-09-06] MEDS: ENOXAPARIN 40 MG/0.4 ML SYRINGE SUBCUT SCH (14:13)
[2022-09-06] MEDS: INSULIN GLARGINE 100 UNIT/ML SUBCUT SCH (20:21)
[2022-09-07 05:04] LABS: Basophils % 0.7 % (0.0-0.8); Eosinophils # 0.1 10*3/uL (0.0-0.87); Eosinophils % 1.6 % (0.00-10.9); Hematocrit 43.5 VOL% (35.7-47.0); Hemoglobin 13.5 GM/DL (12.0-16.0); Immature Granulocytes % 0.2 %; Immature Granulocytes Absolute 0.01 #; Lymphocytes # 1.5 10*3/uL (1.4-4.0); Lymphocytes % 26.5 % (21.3-54.2); Mean Corpuscular Volume 87.7 FL (87-102); Mean Platelet Volume 10.1 FL (9.6-12.0); Monocytes # 0.6 10*3/uL (0.11-0.8); Monocytes % 10.1 % (1.7-12.7); Neutrophils % 60.9 % (38.7-73.9); Platelet Count 215 T/CUMM (130-400); Red Blood Count 4.96 MC/CUMM (3.8-5.5); Red Cell Distribution Width 17.2 % (9.3-17.3); White Blood Count 5.7 T/CUMM (4-12)
[2022-09-07 05:25] LABS: Calcium 8.7 MG/DL (8.5-10.1); Osmolality,Calculated 271.8 MOS/KG (273-304); Potassium 3.6 MMOL/L (3.5-5.1)
[2022-09-07] MEDS: INSULIN REGULAR 100 UNIT/ML SUBCUT SCH ×4 (07:30→21:50)
[2022-09-07] MEDS: FUROSEMIDE 40 MG/4 ML VIAL IV SCH ×2 (09:26→16:02)
[2022-09-07] MEDS: NICOTINE 21 MG/24 HR PATCH TRANSDERM SCH (09:26)
[2022-09-07] MEDS: ASPIRIN EC 81 MG TABLET PO SCH (09:27)
[2022-09-07] MEDS: hydroCHLOROthiazide 12.5 MG CAPSULE PO SCH (09:27)
[2022-09-07] MEDS: AZITHROMYCIN 250 MG TABLET PO SCH (09:27)
[2022-09-07] MEDS: DOCUSATE SODIUM 100 MG CAPSULE PO PRN (09:27)
[2022-09-07] MEDS: lisinopriL 20 MG TABLET PO SCH (09:27)
[2022-09-07] MEDS: ATORVASTATIN 20 MG TABLET PO SCH (09:27)
[2022-09-07] MEDS: cefTRIAXone 2,000 MG in SODIUM CHLORIDE 0.9% 100 ML IV SCH (09:28)
[2022-09-07] MEDS: ENOXAPARIN 40 MG/0.4 ML SYRINGE SUBCUT SCH (16:02)
[2022-09-07] MEDS: INSULIN GLARGINE 100 UNIT/ML SUBCUT SCH (21:20)
[2022-09-08] MEDS: hydroCHLOROthiazide 12.5 MG CAPSULE PO SCH (09:08)
[2022-09-08] MEDS: cefTRIAXone 2,000 MG in SODIUM CHLORIDE 0.9% 100 ML IV SCH (09:09)
[2022-09-08] MEDS: ATORVASTATIN 20 MG TABLET PO SCH (09:09)
[2022-09-08] MEDS: ASPIRIN EC 81 MG TABLET PO SCH (09:09)
[2022-09-08] MEDS: lisinopriL 20 MG TABLET PO SCH (09:09)
[2022-09-08] MEDS: FUROSEMIDE 40 MG/4 ML VIAL IV SCH (09:12)
[2022-09-08] MEDS: NICOTINE 21 MG/24 HR PATCH TRANSDERM SCH (10:34)
[2022-09-08] MEDS: INSULIN REGULAR 100 UNIT/ML SUBCUT SCH ×2 (10:34→12:22)
[2022-09-08 11:41] VITALS: BP 135/79
== END 2022-09-08 13:54 | disposition home or self-care (01) | DRG 194 ==
LOC: N.ED 09:55 → SUATTDRO 12:53 → N.EDINP 12:53 → N.5E 14:10
PROVIDERS: ADMIT Internal Medicine; ATTEND Family Medicine